=== PATIENT | female | born 1995 | race Caucasian/White ===

== ENCOUNTER 2017-08-24 12:50 | Inpatient (IN) | payer OTHER ==
[2017-08-24] MEDS ORDERED: TUBERCULIN PPD 5 TU/0.1ML SYRINGE (IN PATIENT USE ONLY) ID ONE (13:38)
[2017-08-24] MEDS ORDERED: PROMETHAZINE HCL 25 MG/1 ML VIAL IVPUSH STA (14:00)
[2017-08-24] MEDS ORDERED: BUTORPHANOL TARTRATE 1 MG/ML VIAL IVPUSH ONE (14:00)
[2017-08-24] MEDS ORDERED: BUTORPHANOL TARTRATE 1 MG/ML VIAL ONE ×2 (14:07)
[2017-08-24] MEDS ORDERED: PROMETHAZINE HCL 25 MG/1 ML VIAL ONE (14:08)
[2017-08-24 14:16] LABS: INR 0.89 (0.82-1.09); PROTHROMBIN TIME (PATIENT) 10.1 SEC (9.98-11.88)
[2017-08-24 14:23] LABS: ANION GAP 13 (8-16); BLOOD UREA NITROGEN 6 mg/dL (7-18); CALCIUM 8.7 mg/dL (8.5-10.1); CHLORIDE 103 mmol/L (98-107); CO2 22 mmol/L (21-32); CREATININE 0.5 mg/dL (0.55-1.02); GLUCOSE,RANDOM 80 mg/dL (74-106); POTASSIUM 3.8 mmol/L (3.5-5.1); SODIUM 138 mmol/L (136-145)
[2017-08-24 14:30] LABS: BASO % 0.2 % (0-2.0); EOS % 0.3 % (0-4.5); HEMATOCRIT 37.1 % (32.4-45.2); HEMOGLOBIN 12.4 GM/dL (10.7-15.3); MCH 29.8 pg (25.7-33.7); MCHC 33.4 g/dl (32.0-36.0); MEAN CELL VOLUME 89.5 fl (80-96); MEAN PLT VOLUME 8.9 fl (7.5-11.1); MONO % 7.6 % (3.8-10.2); NEUT % 80.9 % (42.8-82.8); PLATELET COUNT 202 K/MM3 (134-434); RBC 4.14 M/mm3 (3.60-5.2); WHITE BLOOD COUNT 11.1 K/mm3 (4.0-10.0)
[2017-08-24] MEDS ORDERED: DEXTROSE 5%-LACTATED RINGERS 1,000 ML IV SCH (14:45)
[2017-08-24 14:48] VITALS: BMI 36.4
[2017-08-24] MEDS ORDERED: LIDOCAINE HCL 1% PRESERVATIVE FREE - 30ML VIAL ONE (15:36)
[2017-08-24] MEDS ORDERED: OXYTOCIN 20 UNITS in 0.9% NS 20 UNIT/1,000 ML INFUS.BAG IV ONE ×2 (15:36→17:16)
[2017-08-24] MEDS ORDERED: METHYLERGONOVINE MALEATE 0.2 MG/1 ML AMP IM PRN (16:24)
[2017-08-24] MEDS ORDERED: WITCH HAZEL 50% (TUCKS) 40 PAD/JAR PAD TP PRN (16:24)
[2017-08-24] MEDS ORDERED: BENZOCAINE 28 GM HEMORRHOIDAL OINTMENT PR PRN (16:24)
[2017-08-24] MEDS ORDERED: ACETAMINOPHEN 325 MG TABLET (FP) PO PRN (16:24)
[2017-08-24] MEDS ORDERED: IBUPROFEN 600 MG TABLET (FP) PO PRN (16:24)
[2017-08-24] MEDS ORDERED: BISACODYL 10 MG SUPP.RECT RC PRN (16:24)
[2017-08-24] MEDS ORDERED: BENZOCAINE 20% 57 GM BOTTLE TP PRN (16:24)
--- NOTE | 2017-08-24 16:24 | HP ---
Past Medical History - Primary Care Physician PCP:: Betina Horne - Admission Chief Complaint: Labor History of Present Illness: 22 yo EDC 08/21/17 by dates EGA 40.3 wek admitted in active labor History Source: Patient Limitations to Obtaining History: No Limitations - Past Medical History ...: 1 ...Para: 0 ...Term: 0 ...: 0 ...Spon : 0 ...Induced : 0 ...LMP: 11/14/16 ... Weeks Gestation by Dates: 40.3 ...EDC by Dates: 08/21/17 ...EDC by Sono: 08/24/17 - Past Surgical History Past Surgical History: Yes: None Hx Myomectomy: No Hx Transabdominal Cerclage: No - Smoking History Smoking history: Never smoked Have you smoked in the past 12 months: No Aproximately how many cigarettes per day: 0 - Alcohol/Substance Use Hx Alcohol Use: No History of Substance Use: reports: None - Social History Usual Living Arrangement: Yes: With Spouse History of Recent Travel: No Home Medications - Allergies Allergies/Adverse Reactions: Allergies Allergy/AdvReac Type Severity Reaction Status Date / Time No Known Allergies Allergy Verified 05/30/12 13:13 - Home Medications Home Medications: Ambulatory Orders Acetaminophen W/ Codeine #3 [Tylenol # 3] 1 tab PO Q6H PRN #14 tablet 05/22/12 Amox-Tr/K Cl [Augmentin 875Mg Tablet] 1 tab PO BID #20 tablet 05/22/12 No Home Medications 0 dose .ROUTE UTDICT 05/22/12 Ibuprofen [Motrin -] 600 mg PO TID #21 tablet 08/25/17 Physical Exam - Maternity Vital Signs: Vital Signs Temperature 98.0 F 08/24/17 13:30 Pulse Rate 89 08/24/17 13:30 Respiratory Rate 20 08/24/17 13:30 Blood Pressure 113/73 08/24/17 13:30 O2 Sat by Pulse Oximetry (%) Constitutional: Yes: Well Nourished, No Distress Neck: Yes: WNL Cardiovascular: Yes: WNL Lungs: Clear to auscultation - Abdominal Exam/OB Fundal Height: 40 Number of Fetuses: Single Presentation: Vertex Contractions: Yes Regularity: Regular Intensity: Mod/Strong Monitor Mode: External Category: I Accelerations: Non-Uniform Decelerations: None - Vaginal Exam/OB Vaginal Bleediing: No Dilatation (cm): 10 Effacement (%): 100 Amniotic Membrane Status: Ruptured Amniotic Fluid: Yes: Meconium Stained Presentation: Vertex/Position Station: +1 - Physical Exam Musculoskeletal: Yes: WNL Extremities: Yes: WNL Edema: No Psychiatric: Yes: WNL, Alert, Oriented - Labs Lab Results: CBC, BMP 08/24/17 13:55 08/24/17 13:55 Hemorrhage Risk Assessment - Risk Factors Risk Score: 0 Risk Level: Low Risk Problem List - Problems (1) Labor established Code(s): DLU7851 - Assessment/Plan IUP at 40.3 week Labor Plan Anticipate vaginal delivery
[2017-08-24 16:38] LABS: ARTERIAL BLOOD GAS BASE EXCESS 0.8 meq/l (-2-2); ARTERIAL BLOOD GAS PCO2 49.3 mmHg (35-45); ARTERIAL BLOOD GAS pH 7.35 (7.35-7.45)
[2017-08-24] MEDS: OXYTOCIN 20 UNITS in 0.9% NS 20 UNIT/1,000 ML INFUS.BAG IV SCH ×2 (16:40→18:00)
[2017-08-24 16:44] LABS: ARTERIAL BLOOD GAS PO2 28.3 mmHg (80-100)
[2017-08-24 16:45] LABS: ARTERIAL BLD GAS O2 SATURATION 55.7 % (90-98.9)
--- NOTE | 2017-08-25 07:18 | PN ---
Post Note - Post Date of Delivery: 08/24/17 Post Day: 1 Vital Signs: Vital Signs - 24 hr 08/24/17 08/24/17 08/24/17 13:30 16:20 16:35 Temperature 98.0 F Pulse Rate 89 74 71 Respiratory 20 20 20 Rate Blood Pressure 113/73 115/63 105/71 O2 Sat by Pulse Oximetry (%) 08/24/17 08/24/17 08/24/17 16:40 16:50 16:55 Temperature 98.4 F Pulse Rate 72 Respiratory 20 Rate Blood Pressure 112/69 O2 Sat by Pulse 100 100 Oximetry (%) 08/24/17 08/24/17 08/24/17 17:05 17:10 17:25 Temperature Pulse Rate 70 Respiratory 20 Rate Blood Pressure 109/72 O2 Sat by Pulse 100 100 Oximetry (%) 08/24/17 08/24/17 08/25/17 18:08 21:00 02:00 Temperature 98.8 F 98.2 F 98.3 F Pulse Rate 92 H 88 79 Respiratory 20 20 20 Rate Blood Pressure 106/67 119/64 107/60 O2 Sat by Pulse Oximetry (%) 08/25/17 06:00 Temperature 98.3 F Pulse Rate 75 Respiratory 20 Rate Blood Pressure 105/57 O2 Sat by Pulse Oximetry (%) Labs: Laboratory Results - last 24 hr 08/24/17 08/24/17 08/24/17 13:55 13:55 13:55 WBC 11.1 H RBC 4.14 Hgb 12.4 Hct 37.1 MCV 89.5 MCH 29.8 MCHC 33.4 RDW 15.0 Plt Count 202 MPV 8.9 Neutrophils % 80.9 Lymphocytes % 11.0 Monocytes % 7.6 Eosinophils % 0.3 Basophils % 0.2 PT with INR 10.10 INR 0.89 PTT (Actin FS) 25.0 L ABG pH ABG pCO2 at Pt Temp ABG pO2 at Pt Temp ABG HCO3 ABG O2 Sat (Measured) ABG O2 Content ABG Base Excess VBG pH POC VBG pCO2 POC VBG pO2 Mixed VBG HCO3 Sodium 138 Potassium 3.8 Chloride 103 Carbon Dioxide 22 Anion Gap 13 BUN 6 L Creatinine 0.5 L Random Glucose 80 Calcium 8.7 RPR Titer Blood Type Antibody Screen 08/24/17 08/24/17 08/24/17 13:55 13:55 16:15 WBC RBC Hgb Hct MCV MCH MCHC RDW Plt Count MPV Neutrophils % Lymphocytes % Monocytes % Eosinophils % Basophils % PT with INR INR PTT (Actin FS) ABG pH 7.35 ABG pCO2 at Pt Temp 49.3 H ABG pO2 at Pt Temp 28.3 L* ABG HCO3 26.5 H ABG O2 Sat (Measured) 55.7 L* ABG O2 Content 9.9 L* ABG Base Excess 0.8 VBG pH POC VBG pCO2 POC VBG pO2 Mixed VBG HCO3 Sodium Potassium Chloride Carbon Dioxide Anion Gap BUN Creatinine Random Glucose Calcium RPR Titer Nonreactive Blood Type A POSITIVE Antibody Screen Negative 08/24/17 16:15 WBC RBC Hgb Hct MCV MCH MCHC RDW Plt Count MPV Neutrophils % Lymphocytes % Monocytes % Eosinophils % Basophils % PT with INR INR PTT (Actin FS) ABG pH ABG pCO2 at Pt Temp ABG pO2 at Pt Temp ABG HCO3 ABG O2 Sat (Measured) ABG O2 Content ABG Base Excess VBG pH Cancelled POC VBG pCO2 Cancelled POC VBG pO2 Cancelled Mixed VBG HCO3 Cancelled Sodium Potassium Chloride Carbon Dioxide Anion Gap BUN Creatinine Random Glucose Calcium RPR Titer Blood Type Antibody Screen - Subjective Subjective: No Complaints, Ambulating - Objective Afebrile: Yes Breast: Not engorged Abdomen: Soft, Non-tender Uterus: Fundus firm, Non-tender Vagina: Scant lochia Extremities: Non-tender - Assessment/Plan (1) Normal vaginal delivery Assessment: S/P Normal Plan: Routine Care (DC home in am)
--- NOTE | 2017-08-25 07:18 | PN ---
Delivery - Delivery Vaginal Delivery: No Problems Type of Anesthesia: Local Episiotomy/Laceration: Midline (repaired with 2-0 chromic) EBL (cc): 400 Delivery, Single - Stages of Labor Date 1st Stage Initiatied: 08/24/17 Time 1st Stage Initiated: 10:30 Date 2nd Stage Initiated: 08/24/17 Time 2nd Stage Initiated: 16:00 Date of Delivery: 08/24/17 Time of Delivery: 16:04 Time Placenta Delivered: 16:10 Placenta: Yes: Spontaneous - Condition of Infant Program Services Assistant/Ham Boner Present: No Gender: Male Weight: 7 lb 15 oz Position: Left, OA Total Hours ROM (Hrs/Mins): 35 - 1 Minute Total Score: 9 5 Minutes Total Score: 9 - [place] Feeding Plan Initial Plan: Elected not to breastfeed exclusively throughout hospitalization
[2017-08-25 08:20] LABS: BASO % 0.3 % (0-2.0); EOS % 0.3 % (0-4.5); HEMATOCRIT 29.1 % (32.4-45.2); HEMOGLOBIN 9.7 GM/dL (10.7-15.3); LYMPH % 14.8 % (8-40); MCHC 33.2 g/dl (32.0-36.0); MEAN CELL VOLUME 90.2 fl (80-96); MEAN PLT VOLUME 9.1 fl (7.5-11.1); MONO % 9.6 % (3.8-10.2); PLATELET COUNT 188 K/MM3 (134-434); RBC 3.22 M/mm3 (3.60-5.2); WHITE BLOOD COUNT 12.3 K/mm3 (4.0-10.0)
[2017-08-25] MEDS ORDERED: DIPHTH,PERTUSS(ACELL),TET 0.5 ML DISP.SYRIN IM ONE (21:00)
[2017-08-26 08:52] VITALS: BP 114/76; PULSE 87; TEMP 98.9
--- NOTE | 2017-08-26 11:42 | DS ---
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 Vital Signs: Vital Signs Temperature 98.9 F 08/26/17 08:49 Pulse Rate 87 08/26/17 08:49 Respiratory Rate 18 08/26/17 08:49 Blood Pressure 114/76 08/26/17 08:49 O2 Sat by Pulse Oximetry (%) 100 08/24/17 17:25 Constitutional: Yes: Well Nourished, No Distress Cardiovascular: Yes: WNL, Regular Rate and Rhythm Respiratory: Yes: WNL Gastrointestinal: Yes: WNL, Normal Bowel Sounds ....Post : Yes: Uterus firm, Uterus non-tender Labs: CBC, BMP 08/25/17 07:30 08/24/17 13:55 Delivery - Delivery Vaginal Delivery: No Problems Type of Anesthesia: Local Episiotomy/Laceration: Midline (repaired with 2-0 chromic) EBL (cc): 400 Delivery, Single - Stages of Labor Date 1st Stage Initiatied: 08/24/17 Time 1st Stage Initiated: 10:30 Date 2nd Stage Initiated: 08/24/17 Time 2nd Stage Initiated: 16:00 Date of Delivery: 08/24/17 Time of Delivery: 16:04 Time Placenta Delivered: 16:10 Placenta: Yes: Spontaneous - Condition of Infant 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 Betina Horne Retread Mold Operator discharge instructions Physical activity Resume your normal everyday activity as tolerated no heavy lifting or exercise until seen by your surgeon. You may walk unlimited janine of and climb stairs. You may resume driving the car when you feel safe and comfortable behind the wheel. No sexual activity as instructed by Dr. Horne. Wound care If you have a bandage, leave it on, and keep dry for 48-72 hours. After that time discard the outer bandage. If they are tapes on the skin under the out of bandage leave them in place. They will peel off in the next 7 to 10 days. Do Not Peel them off. You may shower the day after surgery. If there are tapes present on the skin, you may shower over them. Diet There are no dietary restrictions. Eat healthy, high-fiber foods. Drink 6 to 8 glasses of liquid each day. This will assist in keeping your bowels are regular. Pain management You may take Tylenol or acetaminophen or Ibuprofen (for example, Motrin, Advil etc.) from my pain prescription medication is ordered should be taken as prescribed for moderate to severe pain. Call Dr. Horne for any of the following: Severe pain not relieved by medication Fever of 101 or higher Excessive bleeding or drainage on dressing Inability to urinate Call the office at [phone] for an appointment in seven days. - Home Medications Comprehensive Discharge Medication List: Ambulatory Orders Acetaminophen W/ Codeine #3 [Tylenol # 3] 1 tab PO Q6H PRN #14 tablet 05/22/12 Amox-Tr/K Cl [Augmentin 875Mg Tablet] 1 tab PO BID #20 tablet 05/22/12 No Home Medications 0 dose .ROUTE UTDICT 05/22/12 Ibuprofen [Motrin -] 600 mg PO TID #21 tablet 08/25/17
== END 2017-08-26 13:55 | disposition home or self-care (01) | DRG 560 ==
LOC: JDEL 12:50 → UNDOADMIN 13:15 → J3W 13:15 → JLDR 13:15 → J3W 18:00 → UNDODISIN 08-26 10:59
PROVIDERS: ADMIT Obstetrics & Gynecology; ATTEND Obstetrics & Gynecology
PROC: 10E0XZZ Delivery of Products of Conception, External Approach (ICD-10-PCS; principal; 2017-08-24)
PROC: 0W8NXZZ Division of Female Perineum, External Approach (ICD-10-PCS; 2017-08-24)
DX: O48.0 Post-term pregnancy (principal); Z3A.40 40 weeks gestation of pregnancy; Z37.0 Single live birth
CPT/HCPCS: 36415; 36600; 59409; 80048; 82803; 85025; 85610; 85730; 86593; 86850; 86900; 86901; 90715

== ENCOUNTER 2020-08-20 15:13 | Emergency (ER) | payer OTHER ==
[2020-08-20 15:26] VITALS: BMI 23.3
[2020-08-20 16:49] LABS: BASO % 0.5 % (0-2.0); EOS % 0.4 % (0-4.5); MCH 31.6 pg (25.7-33.7); MCHC 34.4 g/dl (32.0-36.0); MEAN CELL VOLUME 91.9 fl (80-96); MEAN PLT VOLUME 8.6 fl (7.5-11.1); MONO % 6.1 % (3.8-10.2); PLATELET COUNT 235 K/MM3 (134-434); RDW 13.1 % (11.6-15.6); WHITE BLOOD COUNT 9.2 K/mm3 (4.0-10.0)
[2020-08-20 16:57] LABS: INR 0.97 (0.83-1.09); PROTHROMBIN TIME (PATIENT) 11.9 SEC (9.7-13.0)
[2020-08-20 16:59] LABS: EPI CELLS 12 /uL (0-25.1); HYALINE CASTS 2 /uL (0-3.1); PH,URINE 6.5 (5.0-8.0); URINE APPEARANCE CLEAR; URINE BACTERIA 38 /uL (0-1359); URINE BILIRUBIN NEGATIVE (NEGATIVE); URINE COLOR ORANGE; URINE GLUCOSE (UA) NEGATIVE (NEGATIVE); URINE KETONE NEGATIVE (NEGATIVE); URINE LEUK ESTERASE NEGATIVE (NEGATIVE); URINE NITRITE NEGATIVE (NEGATIVE); URINE PROTEIN 1+ (NEGATIVE); URINE RBC 2567 /uL (0-23.9); URINE UROBILINOGEN 0.2 mg/dL (0.2-1.0); URINE WBC 14 /uL (0-25.8)
[2020-08-20 17:00] LABS: ACTIVATED PTT 27.2 SECONDS (25.2-36.5)
[2020-08-20 17:08] LABS: POTASSIUM 3.8 mmol/L (3.5-5.1)
[2020-08-20 17:10] LABS: ALBUMIN 3.7 g/dl (3.4-5.0); BLOOD UREA NITROGEN 10.6 mg/dL (7-18); CALCIUM 8.8 mg/dL (8.5-10.1)
[2020-08-20 17:14] LABS: CREATININE 0.6 mg/dL (0.55-1.3)
[2020-08-20 17:15] LABS: BILIRUBIN,TOTAL 0.3 mg/dL (0.2-1)
[2020-08-20] MEDS ORDERED: SODIUM CHLORIDE 0.9% 500 ML INFUS.BAG IV ONE (17:28)
[2020-08-20 17:50] VITALS: TEMP 99
[2020-08-20 18:33] VITALS: BP 103/68; PULSE 73
== END 2020-08-20 18:20 | disposition home or self-care (01) ==
LOC: JER 15:13
DX: O20.0 Threatened abortion (principal); O26.851 Spotting complicating pregnancy, first trimester; O41.8X10 Other specified disorders of amniotic fluid and membranes, first trimester, not applicable or unspecified; Z3A.10 10 weeks gestation of pregnancy
CPT/HCPCS: 36415; 76801-TC; 80053; 81003; 84702; 85025; 85610; 85730; 86850; 86900; 86901; 87086; 99285-25

== ENCOUNTER 2021-02-19 03:50 | Inpatient (IN) | payer OTHER ==
[2021-02-19] MEDS ORDERED: AMPICILLIN SODIUM 2 GM VIAL ONE (05:04)
[2021-02-19] MEDS ORDERED: AMPICILLIN - 2 GM in SODIUM CHLORIDE 100 ML IVPB ONE (05:50)
[2021-02-19 05:54] VITALS: BMI 34.2
[2021-02-19] MEDS ORDERED: ELECTROLYTE-148 SOLN 1,000 ML IV SCH (06:00)
[2021-02-19 06:15] LABS: BASO % 0.3 % (0-2.0); EOS % 0.3 % (0-4.5); HEMATOCRIT 31.9 % (32.4-45.2); HEMOGLOBIN 10.6 GM/dL (10.7-15.3); LYMPH % 15.2 % (8-40); MCH 28.5 pg (25.7-33.7); MCHC 33.2 g/dl (32.0-36.0); MEAN CELL VOLUME 85.9 fl (80-96); MEAN PLT VOLUME 9.5 fl (7.5-11.1); MONO % 8.4 % (3.8-10.2); NEUT % 75.8 % (42.8-82.8); PLATELET COUNT 201 10^3/uL (134-434); RBC 3.72 M/mm3 (3.60-5.2); RDW 14.4 % (11.6-15.6); WHITE BLOOD COUNT 11.7 K/mm3 (4.0-10.0)
[2021-02-19 06:16] LABS: INR 0.85 (0.83-1.09); PROTHROMBIN TIME (PATIENT) 10.3 SEC (9.7-13.0)
[2021-02-19 06:19] LABS: ACTIVATED PTT 24.9 SECONDS (25.2-36.5)
[2021-02-19 06:23] LABS: BLOOD UREA NITROGEN 6.5 mg/dL (7-18); CALCIUM 8.3 mg/dL (8.5-10.1)
[2021-02-19 06:27] LABS: CREATININE 0.5 mg/dL (0.55-1.3)
[2021-02-19] MEDS ORDERED: BUTORPHANOL TARTRATE 1 MG/ML VIAL ONE (07:26)
[2021-02-19] MEDS ORDERED: PROMETHAZINE HCL 25 MG/1 ML VIAL ONE (07:26)
[2021-02-19] MEDS ORDERED: OXYTOCIN 20 UNITS in 0.9% NS 20 UNIT/1,000 ML INFUS.BAG IV ONE ×2 (07:36→10:22)
[2021-02-19] MEDS ORDERED: ACETAMINOPHEN 325 MG TABLET (FP) PO PRN (09:04)
[2021-02-19] MEDS ORDERED: WITCH HAZEL 50% (TUCKS) 40 PAD/JAR PAD TP PRN (09:04)
[2021-02-19] MEDS ORDERED: BENZOCAINE 20% 57 GM BOTTLE TP PRN (09:04)
[2021-02-19] MEDS ORDERED: METHYLERGONOVINE MALEATE 0.2 MG/1 ML AMP IM PRN (09:04)
[2021-02-19] MEDS ORDERED: BISACODYL 10 MG SUPP.RECT RC PRN (09:04)
[2021-02-19] MEDS ORDERED: BENZOCAINE 28 GM HEMORRHOIDAL OINTMENT TP PRN (09:04)
[2021-02-19] MEDS ORDERED: OXYTOCIN 20 UNITS in 0.9% NS 20 UNIT/1,000 ML INFUS.BAG IV SCH (09:15)
[2021-02-19] MEDS: IBUPROFEN 600 MG TABLET (FP) PO PRN ×2 (09:20→14:40)
[2021-02-19] MEDS: AMPICILLIN - 1 GM in SODIUM CHLORIDE 100 ML IVPB SCH ×2 (09:25→16:27)
[2021-02-19 20:49] VITALS: PULSE 80; TEMP 98.1
[2021-02-20] MEDS: IBUPROFEN 600 MG TABLET (FP) PO PRN (08:10)
[2021-02-20 09:08] LABS: BASO % 0.7 % (0-2.0); EOS % 0.5 % (0-4.5); HEMATOCRIT 25.4 % (32.4-45.2); HEMOGLOBIN 8.5 GM/dL (10.7-15.3); LYMPH % 23.1 % (8-40); MCHC 33.6 g/dl (32.0-36.0); MEAN CELL VOLUME 86.2 fl (80-96); MEAN PLT VOLUME 9.3 fl (7.5-11.1); NEUT % 68.7 % (42.8-82.8); PLATELET COUNT 165 10^3/uL (134-434); RBC 2.95 M/mm3 (3.60-5.2); RDW 14.2 % (11.6-15.6)
[2021-02-20 11:30] VITALS: BP 101/60
[2021-02-20 11:38] LABS: POC NITRAZINE POS
[2021-02-20] MEDS ORDERED: SENNOSIDES/DOCUSATE COMBO (SENNA PLUS) TABLET (UD) PO PRN (22:00)
== END 2021-02-20 13:30 | disposition home or self-care (01) | DRG 560 ==
LOC: JDEL 03:50 → JLDR 03:51 → J3W 11:00
PROVIDERS: ADMIT Specialist; ATTEND Specialist
PROC: 10E0XZZ Delivery of Products of Conception, External Approach (ICD-10-PCS; principal; 2021-02-19)
PROC: 0W8NXZZ Division of Female Perineum, External Approach (ICD-10-PCS; 2021-02-19)
DX: O42.02 Full-term premature rupture of membranes, onset of labor within 24 hours of rupture (principal); O98.82 Other maternal infectious and parasitic diseases complicating childbirth; B95.1 Streptococcus, group B, as the cause of diseases classified elsewhere; O70.0 First degree perineal laceration during delivery; Z3A.37 37 weeks gestation of pregnancy; Z37.0 Single live birth
CPT/HCPCS: 36415; 59409; 80048; 83986-QW; 85025; 85610; 85730; 86780; 86850; 86900; 86901; C9803; U0003; U0005

== ENCOUNTER 2021-09-12 04:45 | Day surgery (SDC) | payer OTHER ==
[2021-09-10 15:18] VITALS: BMI 27.6
[2021-09-12] MEDS ORDERED: ceFAZolin SODIUM 1 GM VIAL IVPB ONE (11:35)
[2021-09-12] MEDS ORDERED: oxyCODONE HCL 5 MG TABLET PO PRN (12:14)
[2021-09-12] MEDS ORDERED: ONDANSETRON 4 MG/2 ML VIAL IVPUSH PRN (12:14)
[2021-09-12] MEDS ORDERED: LACTATED RINGERS SOLUTION 1,000 ML IV SCH (12:15)
[2021-09-12] MEDS ORDERED: ACETAMINOPHEN 325 MG TABLET (FP) PO PRN (12:53)
[2021-09-12] MEDS ORDERED: IBUPROFEN 400 MG TABLET (FP) PO PRN (12:53)
[2021-09-12 14:43] VITALS: BP 108/60; PULSE 65; TEMP 97.8
== END 2021-09-12 15:00 | disposition home or self-care (01) ==
LOC: JASUSAT 04:45
PROVIDERS: ATTEND Specialist
PROC: 10A07ZZ Abortion of Products of Conception, Via Natural or Artificial Opening (ICD-10-PCS; principal; 2021-09-12 10:30)
DX: Z33.2 Encounter for elective termination of pregnancy (principal)
CPT/HCPCS: 88304-TC; 94760

== ENCOUNTER 2022-01-02 04:24 | Day surgery (SDC) | payer OTHER ==
[2022-01-01 14:50] VITALS: BMI 26.2
[2022-01-02] MEDS ORDERED: ceFAZolin SODIUM 1 GM VIAL IVPB ONE (14:10)
[2022-01-02] MEDS ORDERED: ONDANSETRON 4 MG/2 ML VIAL IVPUSH PRN (14:42)
[2022-01-02 17:23] VITALS: BP 100/56; PULSE 75; TEMP 98.2
== END 2022-01-02 17:20 | disposition home or self-care (01) ==
LOC: JASU-SURG 04:24
PROVIDERS: ATTEND Specialist
PROC: 10A07ZZ Abortion of Products of Conception, Via Natural or Artificial Opening (ICD-10-PCS; principal; 2022-01-02 14:00)
DX: Z33.2 Encounter for elective termination of pregnancy (principal)
CPT/HCPCS: 81025; 88305-TC; 94760

== ENCOUNTER 2022-02-03 18:36 | Emergency (ER) | payer OTHER ==
[2022-02-03 18:45] VITALS: BP 112/63; PULSE 63; RESP 18; TEMP 98; BMI 25.0
[2022-02-03] MEDS ORDERED: CEPHALEXIN MONOHYDRATE 500 MG CAPSULE (UD) PO ONE (20:08)
[2022-02-03] MEDS ORDERED: FLUCONAZOLE 150 MG TABLET PO ONE ×2 (20:08→20:11)
[2022-02-03] MEDS ORDERED: CEPHALEXIN MONOHYDRATE 500 MG CAPSULE (UD) ONE (20:11)
== END 2022-02-03 20:56 | disposition home or self-care (01) ==
LOC: JERFT 18:36
DX: L73.9 Follicular disorder, unspecified (principal)
CPT/HCPCS: 87070; 87077; 87205; 99283-25